=== PATIENT | female | born 1965 | race Native Hawaiian/Other Pacific Islander ===

== ENCOUNTER 2017-02-24 12:21 | Outpatient (CLI) | payer OTHER ==
[2017-02-24 12:39] LABS: PLATELET COUNT 325 K/uL (152-353)
[2017-02-24 13:57] LABS: SODIUM 133 mmol/L (136-145)
== END 2017-02-24 19:04 | disposition home or self-care (01) ==
LOC: LABW 12:21
PROVIDERS: Family Medicine
DX: E11.9 Type 2 diabetes mellitus without complications (principal); I10 Essential (primary) hypertension; I50.9 Heart failure, unspecified; E78.4 Other hyperlipidemia; E55.9 Vitamin D deficiency, unspecified
CPT/HCPCS: 36415; 80053; 80061; 81000; 82043; 82306; 82570; 83735; 84439; 84443; 84550; 85027

== ENCOUNTER 2017-07-06 15:12 | Outpatient (CLI) | payer OTHER | END 2017-07-06 19:27 | disposition home or self-care (01) | LOC: RAD 15:12 | DX: R05 Cough (principal); F17.200 Nicotine dependence, unspecified, uncomplicated ==

== ENCOUNTER 2017-11-24 09:47 | Outpatient (CLI) | payer OTHER ==
[2017-11-24 10:25] LABS: PLATELET COUNT 275 K/uL (152-353)
== END 2017-11-24 21:57 | disposition home or self-care (01) ==
LOC: LABW 09:47
PROVIDERS: Family Medicine
DX: E11.42 Type 2 diabetes mellitus with diabetic polyneuropathy (principal); R82.99 Other abnormal findings in urine
CPT/HCPCS: 36415; 80053; 80061; 81000; 82043; 82306; 82570; 83036; 83735; 84439; 84443; 85027; 87077; 87086; 87088; 87185